=== PATIENT | male | born 1960 ===

== ENCOUNTER 2018-01-04 19:49 | Inpatient (IN) | payer BC ==
[2018-01-04 21:13] LABS: VENOUS BLOOD GAS BASE EXCESS 2.2 mmol/L (0.0-2.0); VENOUS BLOOD GAS PCO2 34 mmHg (40-60); VENOUS BLOOD GAS PO2 39 mm/Hg (30-55); VENOUS BLOOD PH 7.48 (7.32-7.43)
[2018-01-04 21:20] LABS: BASO # 0.2 K/uL (0.0-0.2); BASO % 0.8 % (0.0-2.0); HEMOGLOBIN 14.1 g/dL (12.0-18.0); LYMPH % 15.4 % (20.0-40.0); MEAN CELL VOLUME 87.6 fl (80.0-94.0); MEAN CORPUSCULAR HEMOGLOBIN 29.3 pg (27.0-31.0); MEAN CORPUSCULAR HGB CONC 33.4 g/dL (33.0-37.0); MONO # 3.6 K/uL (0.0-0.8); MONO % 13.7 % (0.0-10.0); NEUT # 18.3 K/uL (1.8-7.0); NEUT % 70.1 % (50.0-75.0); RBC 4.8 Mil/uL (4.40-5.90); RED CELL DISTRIBUTION WIDTH 13.3 % (11.5-14.5); WHITE BLOOD COUNT 26.2 K/uL (4.8-10.8)
[2018-01-04 21:25] LABS: ALB/GLOB RATIO 1.2 (1.0-2.1); ALBUMIN 4.3 g/dL (3.5-5.0); ALT/SGPT 31 U/L (21-72); AST/SGOT 25 U/L (17-59); BLOOD UREA NITROGEN 12 mg/dl (9-20); CALCIUM 9.5 mg/dL (8.4-10.2); GFR AFRICAN-AMERICAN > 60; GFR NON-AFRICAN AMERICAN > 60
--- NOTE | 2018-01-04 21:40 | CT ---
EXAM: CT Abdomen and Pelvis Without Intravenous Contrast EXAM DATE/TIME: 01/04/2018 8:15 PM CLINICAL HISTORY: 57 years old, male; Pain; Abdominal pain; Flank; Right; Additional info: Fever flank pain R/O renal colic or pyelo TECHNIQUE: Axial computed tomography images of the abdomen and pelvis without intravenous contrast. All CT scans at this facility use one or more dose reduction techniques, viz.: automated exposure control; ma/kV adjustment per patient size (including targeted exams where dose is matched to indication; i.e. head); or iterative reconstruction technique. Coronal and sagittal reformatted images were created and reviewed. COMPARISON: There are no prior studies for comparison. FINDINGS: Lower thorax: Heart size is at the upper limits of normal. There is a small hiatal hernia. There is minimal scarring at the lung bases.There are degenerative changes in the osseus structures. ABDOMEN: Liver: There is fatty infiltration of the liver. Gallbladder and bile ducts: unremarkable Pancreas: unremarkable Spleen: unremarkable Adrenals: unremarkable Kidneys and ureters: There is a tiny nonobstructing right renal stone.Kidneys and ureters are otherwise unremarkable. Stomach and bowel: Stomach is almost empty. Rotation is normal. There is no small bowel obstruction. Ileocecal region is unremarkable. Appendix and terminal ileum are unremarkable.There is moderate stool in the colon. There is scattered diverticulosis. Appendix: See stomach and bowel PELVIS: Bladder: Bladder is almost completely empty. There is mild bladder wall thickening. There is trace air in the bladder. Reproductive: Prostate is enlarged.Seminal vesicles have the expected configuration. ABDOMEN and PELVIS: Intraperitoneal space: There is no free air or free fluid. Bones/joints: See above. Soft tissues: There is a small fat containing umbilical hernia. There is a fat containing left renal hernia. Vasculature: There are multiple phleboliths. Vascular structures are unremarkable. Lymph nodes: There is no pathologic adenopathy. IMPRESSION: No obstructing renal or ureteral stones or hydronephrosis; limited evaluation of renal parenchyma due to the lack of intravenous contrast material; enlarged prostate; bladder wall thickening; small amount of air in the bladder, infection versus iatrogenic; fatty liver; no CT findings of appendicitis or diverticulitis
--- NOTE | 2018-01-04 22:24 | ED PDOC ---
HPI: General Adult Time Seen by Provider: 01/04/18 20:01 Chief Complaint (Nursing): Fever Chief Complaint (Provider): Fever History Per: Patient History/Exam Limitations: no limitations Onset/Duration Of Symptoms: Days (1) Have you had recent travel within the past 21 days to any of the following countries: [place], [place], [place] or [place]?: No Additional History Per: Patient Additional Complaint(s): 57yo male, history of asthma, high cholesterol, hypertension, presents to ED with complaints of fever and dysuria. Patient reports he had a fever yesterday with Tmax of 104, however he has not taken any medication for his symptoms. He also reports difficulty with urination and dysuria, he denies any nausea or vomiting. He also had constipation for the past two days preceded by episodes of diarrhea. Patient states 3 days ago, he had a cystoscopy for evaluation of microscopic hematuria at [place], [place] and performed by Dr. Dangelo. Patient states he called Dr. Dangelo to inform about his symptoms and was prescribed cippro. He denies any other medical complaints. Past Medical History Reviewed: Historical Data, Nursing Documentation, Vital Signs Vital Signs: Last Vital Signs Temp 99.8 F H 01/07/18 07:34 Pulse 91 H 01/07/18 07:34 Resp 20 01/07/18 07:34 BP 168/91 H 01/07/18 07:34 Pulse Ox 97 01/07/18 07:34 - Medical History PMH: HTN, Hypercholesterolemia - Surgical History Surgical History: No Surg Hx - Family History Family History: States: Hypertension, Other Other Family History: high cholesterol - Social History Ex-Smoker (has not smoked in the last 12 months): Yes Alcohol: None Drugs: Denies - Home Medications Home Medications: Ambulatory Orders Medication Instructions Recorded Albuterol Sulfate [Proair Hfa] 0.09 mg IH DAILY 01/05/18 Atorvastatin [Lipitor] 20 mg PO DAILY #30 tab 01/07/18 Cefdinir [Omnicef] 300 mg PO Q12 #10 cap 01/07/18 Fluticasone/Vilanterol [Breo 1 each IH DAILY #1 blst.w.dev 01/07/18 Ellipta 200-25 Mcg INH] Lisinopril [Zestril] 20 mg PO DAILY #30 tablet 01/07/18 Tamsulosin [Flomax] 0.4 mg PO DAILY #30 cap 01/07/18 - Allergies Allergies/Adverse Reactions: Allergies Allergy/AdvReac Type Severity Reaction Status Date / Time Penicillins Allergy ANAPHYLAXIS Verified 01/04/18 19:51 Review of Systems ROS Statement: Except As Marked, All Systems Reviewed And Found Negative Constitutional: Positive for: Fever ENT: Positive for: Nose Congestion Genitourinary Male: Positive for: Dysuria Physical Exam - Reviewed Nursing Documentation Reviewed: Yes Vital Signs Reviewed: Yes - Physical Exam Appears: Positive for: Non-toxic, No Acute Distress Head Exam: Positive for: ATRAUMATIC, NORMOCEPHALIC Skin: Positive for: Warm, Dry Eye Exam: Positive for: EOMI, PERRL ENT: Negative for: Pharyngeal Erythema, Tonsillar Exudate Neck: Positive for: Painless ROM, Supple Cardiovascular/Chest: Positive for: Regular Rate, Rhythm. Negative for: Murmur Respiratory: Positive for: Normal Breath Sounds. Negative for: Wheezing Gastrointestinal/Abdominal: Positive for: Soft (soft, protuberant obese abdomen) , Tenderness (mild suprapubic tenderness). Negative for: Distended, Guarding, Rebound Back: Negative for: L CVA Tenderness, R CVA Tenderness Extremity: Positive for: Normal ROM. Negative for: Deformity Lymphatic: Negative for: Adenopathy Neurologic/Psych: Positive for: Alert. Negative for: Motor/Sensory Deficits - Laboratory Results Result Diagrams: 01/07/18 05:10 01/07/18 05:10 - ECG O2 Sat by Pulse Oximetry: 96 (RA) Pulse Ox Interpretation: Normal Medical Decision Making Medical Decision Making: Impression: Dysuria, fever Differential: Sepsis, UTI, cystitis, pyelonephritis, urinary retention, renal colic Plan: -- Labs -- CT Abdomen and Pelvis -- Nasal decongestant 15 ml -- Rocephin 1gm IV -- Toradol 15mg IV -- Tylenol 975 mg PO Time: 2140 CT Abdomen and Pelvis FINDINGS: Lower thorax: Heart size is at the upper limits of normal. There is a small hiatal hernia. There is minimal scarring at the lung bases.There are degenerative changes in the osseus structures. ABDOMEN: Liver: There is fatty infiltration of the liver. Gallbladder and bile ducts: unremarkable Pancreas: unremarkable Spleen: unremarkable Adrenals: unremarkable Kidneys and ureters: There is a tiny nonobstructing right renal stone.Kidneys and ureters are otherwise unremarkable. Stomach and bowel: Stomach is almost empty. Rotation is normal. There is no small bowel obstruction. Ileocecal region is unremarkable. Appendix and terminal ileum are unremarkable.There is moderate stool in the colon. There is scattered diverticulosis. Appendix: See stomach and bowel PELVIS: Bladder: Bladder is almost completely empty. There is mild bladder wall thickening. There is trace air in the bladder. Reproductive: Prostate is enlarged.Seminal vesicles have the expected configuration. ABDOMEN and PELVIS: Intraperitoneal space: There is no free air or free fluid. Bones/joints: See above. Soft tissues: There is a small fat containing umbilical hernia. There is a fat containing left renal hernia. Vasculature: There are multiple phleboliths. Vascular structures are unremarkable. Lymph nodes: There is no pathologic adenopathy. IMPRESSION: No obstructing renal or ureteral stones or hydronephrosis; limited evaluation of renal parenchyma due to the lack of intravenous contrast material; enlarged prostate; bladder wall thickening; small amount of air in the bladder, infection versus iatrogenic; fatty liver; no CT findings of appendicitis or diverticulitis Marked leukocytosis and persistent leuks in UA. Will hospitalize for UTI and sepsis DW Dr Stringer Hospitalist covering for PMD Dr Valencia ([facility]) Scribe Attestation: Documented by Maryana Fontaine, acting as a scribe for Kaleigh Wayne MD Provider Scribe Attestation: All medical record entries made by the Scribe were at my direction and personally dictated by me. I have reviewed the chart and agree that the record accurately reflects my personal performance of the history, physical exam, medical decision making, and the department course for this patient. I have also personally directed, reviewed, and agree with the discharge instructions and disposition. Disposition - Clinical Impression Clinical Impression: UTI (urinary tract infection), Sepsis Counseled Patient/Family Regarding: Studies Performed, Diagnosis - Disposition Disposition Time: 22:00 Condition: FAIR - Pt Status Changed To: Hospital Disposition Of: Observation - POA Present On Arrival: None
[2018-01-04 22:46] LABS: URINE BILIRUBIN NEGATIVE (NEGATIVE); URINE BLOOD SMALL (NEGATIVE); URINE CLARITY SLIGHTY-CLOUDY (Clear); URINE COLOR YELLOW (YELLOW); URINE GLUCOSE (UA) NEG (Normal); URINE LEUKOCYTE ESTERASE TRACE Leu/uL (Negative); URINE PROTEIN 100 mg/dL (NEGATIVE); URINE UROBILINOGEN 0.2-1.0 mg/dL (0.2-1.0)
[2018-01-04] MEDS ORDERED: cefTRIAXone (Rocephin) 1 gm Inj ONE (22:49)
--- NOTE | 2018-01-04 23:59 | CP.PCM.HP ---
History of Present Illness - History of Present Illness History of Present Illness: CC: Fever, dysuria This is a 57 year old male with a past medical history of morbid obesity, hypercholesterolemia, asthma, essential hypertension, who presented to the ED today with the complaint of fever of 104 at home, malaise, and dysuria. The patient states that 3 days ago he had a cystoscopy due to c/o hematuria for which he states that nothing was found. This was done by urologist Dr. Dangelo in [place], [place]. He has taken Cipro for the past 2 days due to the fever and dysuria which was given to him by the urologist. In the ED, the patient was found to have significant leukocytosis and a fever of 101.6 with tachycardia. Urinalysis shows WBC in the urine, however is not conclusive at this time for urinary tract infection due to lack of significant bacteria or urine nitrates or leukocyte esterase. The patient is also complaining of intermittent diarrhea. CT scan was performed and shows fatty liver but no evidence of obstructive uropathy. The patient is to be admitted for further workup and management of sepsis. Patient also c/o nasal congestion and pressure. Patient denies chest pain, shortness of breath, chills, nausea, vomiting, headache. All of the patient's questions were answered at the bedside. Present on Admission - Present on Admission Any Indicators Present on Admission: No History of DVT/PE: No History of Uncontrolled Diabetes: No Review of Systems - Review of Systems Review of Systems: A 12 point ROS was conducted and found to be negative other than what was mentioned in the HPI. Past Patient History - Infectious Disease Hx of Infectious Diseases: None - Past Medical History & Family History Past Medical History?: Yes Past Family History: Reviewed and not pertinent - Past Social History Smoking Status: Never Smoked Alcohol: None Drugs: Denies - CARDIAC Hx Hypercholesterolemia: Yes Hx Hypertension: Yes Meds Allergies/Adverse Reactions: Allergies Allergy/AdvReac Type Severity Reaction Status Date / Time Penicillins Allergy ANAPHYLAXIS Verified 01/04/18 19:51 Physical Exam - Additional Findings Additional findings: Physical exam: Constitutional- cooperative, awake, alert Head- NCAT, PERRL Eye- PERRL, EOMI ENT- normal exam, MMM. Neck- normal inspection, supple, no JVD Respiratory- CTAB, no wheezes rales rhonchi Cardiovascular- RRR, +S1, +S2 no MRG GI/Abdominal- protuberant, normal bowel sounds, soft, no mass, no hsm Skin- warm, dry, multiple tattoos Extremities Exam- normal capillary refill, normal inspection Neurological Exam- alert, awake, oriented Psych- normal mood, normal affect Results - Vital Signs Recent Vital Signs: Last Vital Signs Temp 101.6 F H 01/04/18 22:38 Pulse 103 H 01/04/18 22:38 Resp 16 01/04/18 19:51 BP 168/81 H 01/04/18 19:51 Pulse Ox 96 01/04/18 22:51 - Labs Result Diagrams: 01/04/18 21:02 01/04/18 21:02 Labs: Laboratory Results - last 24 hr 01/04/18 01/04/18 01/04/18 21:02 21:02 21:10 WBC 26.2 H RBC 4.80 Hgb 14.1 Hct 42.1 MCV 87.6 MCH 29.3 MCHC 33.4 RDW 13.3 Plt Count 216 MPV 9.0 Neut % (Auto) 70.1 Lymph % (Auto) 15.4 L [place] % (Auto) 13.7 H Eos % (Auto) 0.0 Baso % (Auto) 0.8 Neut # (Auto) 18.3 H Lymph # (Auto) 4.0 [place] # (Auto) 3.6 H Eos # (Auto) 0.0 Baso # (Auto) 0.2 pO2 39 VBG pH 7.48 H VBG pCO2 34 L VBG HCO3 26.1 VBG Total CO2 26.3 VBG O2 Sat (Calc) 83.3 H VBG Base Excess 2.2 H VBG Potassium 3.7 Glucose 135 H Lactate 1.0 FiO2 21.0 Sodium 139 134.0 Potassium 3.5 L Chloride 101 103.0 Carbon Dioxide 24 Anion Gap 18 BUN 12 Creatinine 1.0 Est GFR ( Amer) > 60 Est GFR (Non-Af Amer) > 60 Random Glucose 137 H Calcium 9.5 Total Bilirubin 1.2 AST 25 ALT 31 Alkaline Phosphatase 68 Total Protein 7.9 Albumin 4.3 Globulin 3.6 Albumin/Globulin Ratio 1.2 Venous Blood Potassium 3.7 Urine Color Urine Clarity Urine pH Ur Specific [place] Urine Protein Urine Glucose (UA) Urine Ketones Urine Blood Urine Nitrate Urine Bilirubin Urine Urobilinogen Ur Leukocyte Esterase Urine RBC (Auto) Urine Microscopic WBC 01/04/18 22:05 WBC RBC Hgb Hct MCV MCH MCHC RDW Plt Count MPV Neut % (Auto) Lymph % (Auto) [place] % (Auto) Eos % (Auto) Baso % (Auto) Neut # (Auto) Lymph # (Auto) [place] # (Auto) Eos # (Auto) Baso # (Auto) pO2 VBG pH VBG pCO2 VBG HCO3 VBG Total CO2 VBG O2 Sat (Calc) VBG Base Excess VBG Potassium Glucose Lactate FiO2 Sodium Potassium Chloride Carbon Dioxide Anion Gap BUN Creatinine Est GFR ( Amer) Est GFR (Non-Af Amer) Random Glucose Calcium Total Bilirubin AST ALT Alkaline Phosphatase Total Protein Albumin Globulin Albumin/Globulin Ratio Venous Blood Potassium Urine Color Yellow Urine Clarity Slighty-cloudy Urine pH 6.0 Ur Specific [place] 1.017 Urine Protein 100 Urine Glucose (UA) Neg Urine Ketones Negative Urine Blood Small Urine Nitrate Negative Urine Bilirubin Negative Urine Urobilinogen 0.2-1.0 Ur Leukocyte Esterase Trace Urine RBC (Auto) 23 H Urine Microscopic WBC 13 H Assessment & Plan - Assessment and Plan (Free Text) Plan: ASSESSMENT/PLAN This is a 57 year old male with a past medical history of morbid obesity, hypercholesterolemia, asthma, essential hypertension, who is being admitted for sepsis, presumably secondary to urinary tract infection. Sepsis, presumably secondary to UTI - Med/surg obs - IV bolus NS given in ED, continue NS at 150 cc/hour - Continue Rocephin 1 gram IVPB daily - Toradol PRN for pain - Monitor vitals closely - Tylenol PRN for fever - Follow up urine cultures - F/u CBC Leukocytosis, WBC 26.2 - Secondary to sepsis/infection r/o influenza - F/u flu swab - Will treat empiracally for influenza with Tamiflu, given significant fevers Sinusitis - Afrin PRN Essential hypertension 168/81 - Monitor for now with sepsis present - likely restart home htn meds in am Hypercholesterolemia - statin Morbid obesity BMI 42.3 - Obtain HGA1C DVT prophylaxis - Lovenox
[2018-01-05] MEDS: Sodium Chloride 0.9% 1,000 ML IV SCH ×3 (02:18→20:00)
[2018-01-05 07:07] LABS: HEMOGLOBIN 13.1 g/dL (12.0-18.0); MEAN CELL VOLUME 89.1 fl (80.0-94.0); MEAN CORPUSCULAR HEMOGLOBIN 29.8 pg (27.0-31.0); MEAN CORPUSCULAR HGB CONC 33.5 g/dL (33.0-37.0); RBC 4.39 Mil/uL (4.40-5.90); RED CELL DISTRIBUTION WIDTH 13.6 % (11.5-14.5); WHITE BLOOD COUNT 22.7 K/uL (4.8-10.8)
[2018-01-05 07:21] LABS: BLOOD UREA NITROGEN 13 mg/dl (9-20); CALCIUM 8.6 mg/dL (8.4-10.2); GFR AFRICAN-AMERICAN > 60; GFR NON-AFRICAN AMERICAN > 60
--- NOTE | 2018-01-05 08:21 | RAD ---
HISTORY: sepsis COMPARISON: 02/09/2017 TECHNIQUE: Chest PA and lateral FINDINGS: LUNGS: No active pulmonary disease. PLEURA: No significant pleural effusion identified. No pneumothorax apparent. CARDIOVASCULAR: Normal. OSSEOUS STRUCTURES: Prominent thoracic marginal osteophytosis. Right shoulder arthrosis VISUALIZED UPPER ABDOMEN: Normal. OTHER FINDINGS: None. IMPRESSION: No interval pathology noted
[2018-01-05] MEDS: Influenza Vaccine 18yr & older 0.5 ML/45 MCG SYR IM ONE ×2 (08:43→09:05)
[2018-01-05] MEDS ORDERED: Potassium Chloride 20 mEq ER Tab PO ONE (08:57)
[2018-01-05] MEDS ORDERED: Enoxaparin 40 mg Syringe SC SCH (09:00)
[2018-01-05] MEDS ORDERED: Enoxaparin 60 mg Syringe SC SCH (09:00)
[2018-01-05] MEDS ORDERED: Pneumococcal 23-Valent Vaccine IM ONE (09:00)
--- NOTE | 2018-01-05 11:21 | CP.PCM.PN ---
Subjective - Date & Time of Evaluation Date of Evaluation: 01/05/18 Time of Evaluation: 11:15 - Subjective Subjective: still with fever dysuria, frequency +nasal congestion - hx of Rhinitis, uses nasal spray at home denies CP has cough , chronic x 1 year no abd pain Objective - Vital Signs/Intake and Output Vital Signs (last 24 hours): Temp Pulse Resp BP Pulse Ox 99.3 F 93 H 20 156/96 H 96 01/05/18 08:06 01/05/18 09:09 01/05/18 08:06 01/05/18 09:09 01/05/18 08:06 - Medications Medications: Current Medications Acetaminophen (Tylenol 325mg Tab) 650 mg PO Q6 PRN PRN Reason: Fever >100.4 F Atorvastatin Calcium (Lipitor) 40 mg PO DAILY [facility] Last Admin: 01/05/18 08:41 Dose: 40 mg Enoxaparin Sodium (Lovenox) 50 mg SC DAILY [facility] PRN Reason: Protocol Last Admin: 01/05/18 08:37 Dose: 50 mg Home Med (Albuterol Sulfate) 0.09 mg IH DAILY [facility] Sodium Chloride (Sodium Chloride 0.9%) 1,000 mls @ 150 mls/hr IV .Q6H40M [facility] Last Admin: 01/05/18 06:19 Dose: Not Given Ceftriaxone Sodium 1 gm/ (Dextrose) 100 mls @ 100 mls/hr IVPB DAILY [facility] PRN Reason: Protocol Last Admin: 01/05/18 08:45 Dose: 100 mls/hr Ketorolac Tromethamine (Toradol) 30 mg IVP Q6 PRN PRN Reason: Pain, severe (8-10) Last Admin: 01/05/18 08:46 Dose: 30 mg Lisinopril (Zestril) 20 mg PO DAILY [facility] Last Admin: 01/05/18 09:09 Dose: 20 mg Ondansetron HCl (Zofran Inj) 4 mg IVP Q6 PRN PRN Reason: Nausea/Vomiting Oseltamivir Phosphate (Tamiflu Cap) 75 mg PO BID [facility] PRN Reason: Protocol Last Admin: 01/05/18 08:41 Dose: 75 mg Oxymetazoline HCl (Nasal Decongestant 15 Ml) 1 spr NS Q12 PRN PRN Reason: Nasal congestion Fluticasone/Salmeterol (Advair Diskus 250/50) 1 puff IH Q12H [facility] - Labs Labs: 01/05/18 05:20 01/05/18 05:20 - Constitutional Appears: Non-toxic, No Acute Distress - Head Exam Head Exam: ATRAUMATIC, NORMAL INSPECTION, NORMOCEPHALIC - Eye Exam Eye Exam: EOMI, Normal appearance, PERRL Pupil Exam: NORMAL ACCOMODATION - ENT Exam ENT Exam: Mucous Membranes Moist, Normal External Ear Exam Additional comments: nasal congestion - Neck Exam Neck Exam: Full ROM. absent: Meningismus - Respiratory Exam Respiratory Exam: NORMAL BREATHING PATTERN. absent: Rales, Wheezes, Respiratory Distress - Cardiovascular Exam Cardiovascular Exam: REGULAR RHYTHM, +S1, +S2 - GI/Abdominal Exam GI & Abdominal Exam: Soft, Normal Bowel Sounds. absent: Tenderness - Extremities Exam Extremities Exam: Full ROM, Normal Capillary Refill. absent: Calf Tenderness, Pedal Edema - Back Exam Back Exam: Full ROM. absent: CVA tenderness (L), CVA tenderness (R), paraspinal tenderness, vertebral tenderness - Neurological Exam Neurological Exam: Alert, Awake, CN II-XII Intact, Normal Gait, Oriented x3 Neuro motor strength exam: Left Upper Extremity: 5, Right Upper Extremity: 5, Left Lower Extremity: 5, Right Lower Extremity: 5 - Psychiatric Exam Psychiatric exam: Normal Affect, Normal Mood - Skin Skin Exam: Dry, Normal Color, Warm Assessment and Plan - Assessment and Plan (Free Text) Assessment: This is a 57 year old male with a past medical history of morbid obesity, hypercholesterolemia, asthma, essential hypertension, chronic rhinosinusitis, who came in bec of fever , dysuria, frequency. recent hx of Cystoscopy. Sepsis, presumably secondary to UTI -Pt with persistent fever and leukocytosis, will admit pt - continue IV hydration - Continue Rocephin 1 gram IVPB daily - Toradol PRN for pain - Monitor vitals closely - Tylenol PRN for fever - Follow up urine cultures and blood c/s Suspected Influenza, unlikely - fever likely due to UTI and not flu and nasal congestion is chronic, no ther sxs like bodyaches - Flu swab negative - d/c Tamiflu Chronic RhinoSinusitis -pt on Afrin at home - will d/c as persistnt nasal congestion might be rebound - start Flonase Chronic Cough ? sec to EMILY - d/c Lisinopril, start Diovan - CXR : negative Essential hypertension -start Eriberto, d/c Lisinopril ( may be etio of chronic cough) Hypercholesterolemia - statin Morbid obesity BMI 42.3 Asthma, mild intermittent - pt states he had seen Pulm and was prescribed Lakshmi and Albuterol DVT prophylaxis - Lovenox
[2018-01-05] MEDS ORDERED: Albuterol HFA 90 mcg/actuation (8 g) INH STA (12:37)
[2018-01-05] MEDS: ALBUTEROL SULFATE 0.09 MG IH SCH (12:50)
[2018-01-05] MEDS ORDERED: Albuterol-Ipratrop 3 mg / 0.5 (3 ml) UD INH SCH (14:00)
[2018-01-05] MEDS: Albuterol-Ipratrop 3 mg / 0.5 (3 ml) UD INH PRN (19:37)
[2018-01-06 06:48] LABS: BLOOD UREA NITROGEN 10 mg/dl (9-20); CALCIUM 8.5 mg/dL (8.4-10.2); GFR AFRICAN-AMERICAN > 60; GFR NON-AFRICAN AMERICAN > 60
[2018-01-06 06:50] LABS: BASO # 0.1 K/uL (0.0-0.2); BASO % 0.4 % (0.0-2.0); EOS # 0.1 K/uL (0.0-0.7); EOS % 0.4 % (0.0-4.0); HEMOGLOBIN 12.6 g/dL (12.0-18.0); LYMPH # 2.6 K/uL (1.0-4.3); MEAN CELL VOLUME 87.9 fl (80.0-94.0); MEAN CORPUSCULAR HEMOGLOBIN 30.1 pg (27.0-31.0); MEAN CORPUSCULAR HGB CONC 34.2 g/dL (33.0-37.0); MEAN PLATELET VOLUME 9.5 fl (7.2-11.7); MONO # 1.9 K/uL (0.0-0.8); MONO % 10.9 % (0.0-10.0); NEUT # 12.6 K/uL (1.8-7.0); NEUT % 73.3 % (50.0-75.0); NRBC % 0.1 % (0.0-0.0); RBC 4.18 Mil/uL (4.40-5.90); RED CELL DISTRIBUTION WIDTH 13.4 % (11.5-14.5); WHITE BLOOD COUNT 17.2 K/uL (4.8-10.8)
--- NOTE | 2018-01-06 08:31 | CP.PCM.PN ---
Subjective - Date & Time of Evaluation Date of Evaluation: 01/06/18 Time of Evaluation: 08:31 - Subjective Subjective: COMFORTABLE DYSURIA FREQ HD STABLE NAD STABLE COUGH Objective - Vital Signs/Intake and Output Vital Signs (last 24 hours): Temp Pulse Resp BP Pulse Ox 98.4 F 89 20 167/98 H 97 01/06/18 07:50 01/06/18 07:50 01/06/18 07:50 01/06/18 07:50 01/06/18 07:50 GENERAL APPEARANCE: Well developed, well nourished, alert and cooperative, and appears to be in no acute distress. HEENT: normocephalic, atraumatic PERRL, EOMI. Vision is grossly intact. External auditory canals clear, hearing grossly intact. No nasal discharge. Oral cavity and pharynx normal. No inflammation, swelling, exudate, or lesions. NECK: Neck supple, non-tender without lymphadenopathy, masses or thyromegaly. CARDIAC: Normal S1 and S2. No S3, S4 or murmurs. Rhythm is regular. LUNGS: Clear to auscultation and percussion without rales, rhonchi, wheezing or diminished breath sounds. ABDOMEN: Positive bowel sounds. Soft, nondistended, nontender. No guarding or rebound. No masses. BACK: Examination of the spine reveals no spinal deformity, symmetry of spinal muscles, EXTREMITIES: No significant deformity or joint abnormality. No edema. NEUROLOGICAL: Strength and sensation symmetric and intact throughout. Reflexes 2 + throughout. SKIN: Skin normal color, texture and turgor with no lesions or eruptions. PSYCHIATRIC: The patient was oriented to person, place, and time. Normal affect. - Medications Medications: Current Medications Acetaminophen (Tylenol 325mg Tab) 650 mg PO Q6 PRN PRN Reason: Fever >100.4 F Last Admin: 01/06/18 03:42 Dose: 650 mg Albuterol/Ipratropium (Duoneb 3 Mg/0.5 Mg (3 Ml) Ud) 3 ml INH RTID PRN PRN Reason: Shortness of Breath Last Admin: 01/05/18 19:37 Dose: 3 ml Atorvastatin Calcium (Lipitor) 40 mg PO DAILY [facility] Last Admin: 01/05/18 08:41 Dose: 40 mg Enoxaparin Sodium (Lovenox) 40 mg SC DAILY [facility] PRN Reason: Protocol Fluticasone Propionate (Flonase) 1 spr MICHAEL BID [facility] Last Admin: 01/05/18 17:17 Dose: Not Given Home Med (Albuterol Sulfate) 0.09 mg IH DAILY [facility] Last Admin: 01/05/18 12:50 Dose: 0.09 mg Home Med (Patient's Own Medication) 1 unit INH DAILY [facility] Sodium Chloride (Sodium Chloride 0.9%) 1,000 mls @ 150 mls/hr IV .Q6H40M [facility] Last Admin: 01/05/18 20:00 Dose: Not Given Ceftriaxone Sodium 1 gm/ (Dextrose) 100 mls @ 100 mls/hr IVPB DAILY [facility] PRN Reason: Protocol Last Admin: 01/05/18 08:45 Dose: 100 mls/hr Ketorolac Tromethamine (Toradol) 30 mg IVP Q6 PRN PRN Reason: Pain, severe (8-10) Last Admin: 01/05/18 17:21 Dose: 30 mg Ondansetron HCl (Zofran Inj) 4 mg IVP Q6 PRN PRN Reason: Nausea/Vomiting Oseltamivir Phosphate (Tamiflu Cap) 75 mg PO BID [facility] PRN Reason: Protocol Last Admin: 01/05/18 18:43 Dose: 75 mg Tamsulosin HCl (Flomax) 0.4 mg PO DAILY [facility] Last Admin: 01/05/18 12:37 Dose: 0.4 mg Tramadol HCl (Ultram) 100 mg PO Q6 PRN PRN Reason: Pain, moderate (4-7) Last Admin: 01/05/18 12:37 Dose: 100 mg Valsartan (Diovan) 160 mg PO DAILY [facility] - Labs Labs: 01/06/18 05:30 01/06/18 05:30 Assessment and Plan - Assessment and Plan (Free Text) Plan: This is a 57 year old male with a past medical history of morbid obesity, hypercholesterolemia, asthma, essential hypertension, chronic rhinosinusitis, who came in bec of fever , dysuria, frequency. recent hx of Cystoscopy. Sepsis, presumably secondary to UTI - persistent fever 100.5 OVERNIGHT TMAX 101 24H and leukocytosis - continue IV hydration - Continue Rocephin 1 gram IVPB daily - Toradol PRN for pain - Monitor vitals closely - Tylenol PRN for fever - Follow up urine cultures and blood c/s - NO GROWTH Suspected Influenza, unlikely - fever likely due to UTI and not flu and nasal congestion is chronic, no ther sxs like bodyaches - Flu swab negative - d/c Tamiflu Chronic RhinoSinusitis -pt on Afrin at home - will d/c as persistnt nasal congestion might be rebound - start Flonase Chronic Cough ? sec to EMILY - d/c Lisinopril, start Diovan - CXR : negative Essential hypertension -start Diovan, d/c Lisinopril ( may be etio of chronic cough) Hypercholesterolemia - statin Morbid obesity BMI 42.3 Asthma, mild intermittent - pt states he had seen Pulm and was prescribed Lakshmi and Albuterol DVT prophylaxis - Lovenox
[2018-01-06] MEDS: ALBUTEROL SULFATE 0.09 MG IH SCH (08:41)
[2018-01-06] MEDS: Enoxaparin 40 mg Syringe SC SCH (08:42)
[2018-01-06] MEDS: Sodium Chloride 0.9% 1,000 ML IV SCH ×3 (08:43→21:21)
[2018-01-06] MEDS ORDERED: Fluticasone-Salmeterol 250-50mcg Diskus IH SCH (09:00)
[2018-01-06] MEDS: Albuterol-Ipratrop 3 mg / 0.5 (3 ml) UD INH PRN ×2 (11:43→23:53)
[2018-01-06] MEDS: FLUTICASONE FUROATE INH SCH (12:35)
[2018-01-06] MEDS: VILANTEROL INH SCH (12:35)
[2018-01-07] MEDS: Sodium Chloride 0.9% 1,000 ML IV SCH ×3 (00:10→08:16)
[2018-01-07 07:18] LABS: BASO # 0.1 K/uL (0.0-0.2); BASO % 0.6 % (0.0-2.0); EOS # 0.1 K/uL (0.0-0.7); EOS % 1.1 % (0.0-4.0); HEMOGLOBIN 12.5 g/dL (12.0-18.0); LYMPH # 1.6 K/uL (1.0-4.3); LYMPH % 14.5 % (20.0-40.0); MEAN CELL VOLUME 88.3 fl (80.0-94.0); MEAN CORPUSCULAR HEMOGLOBIN 30.1 pg (27.0-31.0); MEAN CORPUSCULAR HGB CONC 34.1 g/dL (33.0-37.0); MEAN PLATELET VOLUME 9.3 fl (7.2-11.7); MONO # 1.3 K/uL (0.0-0.8); MONO % 11.5 % (0.0-10.0); NEUT # 7.9 K/uL (1.8-7.0); NEUT % 72.3 % (50.0-75.0); NRBC % 0.1 % (0.0-0.0); RBC 4.14 Mil/uL (4.40-5.90); RED CELL DISTRIBUTION WIDTH 13.1 % (11.5-14.5); WHITE BLOOD COUNT 10.9 K/uL (4.8-10.8)
--- NOTE | 2018-01-07 07:22 | CP.PCM.PN ---
Subjective - Date & Time of Evaluation Date of Evaluation: 01/07/18 Time of Evaluation: 07:22 Objective - Vital Signs/Intake and Output Vital Signs (last 24 hours): Temp Pulse Resp BP Pulse Ox 98.2 F 86 19 163/91 H 96 01/07/18 00:05 01/07/18 00:05 01/07/18 00:05 01/07/18 00:05 01/07/18 00:05 - Medications Medications: Current Medications Acetaminophen (Tylenol 325mg Tab) 650 mg PO Q6 PRN PRN Reason: Fever >100.4 F Last Admin: 01/06/18 17:32 Dose: 650 mg Albuterol/Ipratropium (Duoneb 3 Mg/0.5 Mg (3 Ml) Ud) 3 ml INH RTID PRN PRN Reason: Shortness of Breath Last Admin: 01/06/18 23:53 Dose: 3 ml Atorvastatin Calcium (Lipitor) [address] [facility] Last Admin: 01/06/18 08:42 Dose: 40 mg Enoxaparin Sodium (Lovenox) 40 mg SC DAILY [facility] PRN Reason: Protocol Last Admin: 01/06/18 08:42 Dose: 40 mg Fluticasone Propionate (Flonase) [address] [facility] Last Admin: 01/06/18 17:01 Dose: 1 spr Home Med (Albuterol Sulfate) 0.[address] [facility] Last Admin: 01/06/18 08:41 Dose: 0.09 mg Home Med (Patient's Own Medication) [address] [facility] Last Admin: 01/06/18 12:35 Dose: 1 unit Ceftriaxone Sodium 1 gm/ (Dextrose) 100 mls @ 100 mls/hr IVPB DAILY [facility] PRN Reason: Protocol Last Admin: 01/06/18 08:43 Dose: 100 mls/hr Sodium Chloride (Sodium Chloride 0.9%) 1,000 mls @ 100 mls/hr IV .Q10H [facility] Last Admin: 01/07/18 00:10 Dose: 100 mls/hr Ibuprofen (Motrin Tab) 600 mg PO Q8 PRN PRN Reason: Headache Ketorolac Tromethamine (Toradol) 30 mg IVP Q6 PRN PRN Reason: Pain, severe (8-10) Last Admin: 01/06/18 15:56 Dose: 30 mg Ondansetron HCl (Zofran Inj) 4 mg IVP Q6 PRN PRN Reason: Nausea/Vomiting Tamsulosin HCl (Flomax) 0.[address] [facility] Last Admin: 01/06/18 08:42 Dose: 0.4 mg Tramadol HCl (Ultram) 100 mg PO Q6 PRN PRN Reason: Pain, moderate (4-7) Last Admin: 01/06/18 13:28 Dose: 100 mg Valsartan (Diovan) [address] [facility] Last Admin: 01/06/18 08:42 Dose: 160 mg - Labs Labs: 01/06/18 05:30 01/06/18 05:30 Assessment and Plan - Assessment and Plan (Free Text) Plan: This is a 57 year old male with a past medical history of morbid obesity, hypercholesterolemia, asthma, essential hypertension, chronic rhinosinusitis, who came in bec of fever , dysuria, frequency. recent hx of Cystoscopy. Sepsis, presumably secondary to UTI - persistent fever 100.5 OVERNIGHT TMAX 101 24H and leukocytosis - continue IV hydration - Continue Rocephin 1 gram IVPB daily - Toradol PRN for pain - Monitor vitals closely - Tylenol PRN for fever - Follow up urine cultures and blood c/s - NO GROWTH Suspected Influenza, unlikely - fever likely due to UTI and not flu and nasal congestion is chronic, no ther sxs like bodyaches - Flu swab negative - d/c Tamiflu Chronic RhinoSinusitis -pt on Afrin at home - will d/c as persistnt nasal congestion might be rebound - start Flonase Chronic Cough ? sec to [facility] - d/c Lisinopril, start Diovan - CXR : negative Essential hypertension -start Diovan, d/c Lisinopril ( may be etio of chronic cough) Hypercholesterolemia - statin Morbid obesity BMI 42.3 Asthma, mild intermittent - pt states he had seen Pulm and was prescribed Lakshmi and Albuterol DVT prophylaxis - Lovenox
[2018-01-07 07:32] LABS: BLOOD UREA NITROGEN 10 mg/dl (9-20); CALCIUM 8.4 mg/dL (8.4-10.2); GFR AFRICAN-AMERICAN > 60; GFR NON-AFRICAN AMERICAN > 60
[2018-01-07 07:35] VITALS: BP 168/91; PULSE 91; RESP 20; TEMP 99.8
[2018-01-07] MEDS: Enoxaparin 40 mg Syringe SC SCH (08:08)
[2018-01-07] MEDS: FLUTICASONE FUROATE INH SCH (08:10)
[2018-01-07] MEDS: VILANTEROL INH SCH (08:10)
[2018-01-07] MEDS: ALBUTEROL SULFATE 0.09 MG IH SCH (08:11)
--- NOTE | 2018-01-07 10:29 | CP.PCM.DIS ---
Provider - Provider Date of Admission: 01/05/18 09:38 Attending physician: Faustino Stringer DO Time Spent in preparation of Discharge (in minutes): 30 Diagnosis - Discharge Diagnosis (1) Prostatitis Status: Acute Hospital Course - Lab Results Lab Results: Micro Results 01/04/18 21:17 Blood Blood Culture - Preliminary NO GROWTH AFTER 48 HOURS 01/04/18 21:02 Blood Blood Culture - Preliminary NO GROWTH AFTER 48 HOURS 01/04/18 21:17 Urine Urine Culture - Final No Growth (<1,000 CFU/ML) Most Recent Lab Values WBC 10.9 K/uL (4.8-10.8) H 01/07/18 05:10 RBC 4.14 Mil/uL (4.40-5.90) L 01/07/18 05:10 Hgb 12.5 g/dL (12.0-18.0) 01/07/18 05:10 Hct 36.6 % (35.0-51.0) 01/07/18 05:10 MCV 88.3 fl (80.0-94.0) 01/07/18 05:10 MCH 30.1 pg (27.0-31.0) 01/07/18 05:10 MCHC 34.1 g/dL (33.0-37.0) 01/07/18 05:10 RDW 13.1 % (11.5-14.5) 01/07/18 05:10 Plt Count 222 K/uL (130-400) 01/07/18 05:10 MPV 9.3 fl (7.2-11.7) 01/07/18 05:10 Neut % (Auto) 72.3 % (50.0-75.0) 01/07/18 05:10 Lymph % (Auto) 14.5 % (20.0-40.0) L 01/07/18 05:10 Dale % (Auto) 11.5 % (0.0-10.0) H 01/07/18 05:10 Eos % (Auto) 1.1 % (0.0-4.0) 01/07/18 05:10 Baso % (Auto) 0.6 % (0.0-2.0) 01/07/18 05:10 Neut # (Auto) 7.9 K/uL (1.8-7.0) H 01/07/18 05:10 Lymph # (Auto) 1.6 K/uL (1.0-4.3) 01/07/18 05:10 Dale # (Auto) 1.3 K/uL (0.0-0.8) H 01/07/18 05:10 Eos # (Auto) 0.1 K/uL (0.0-0.7) 01/07/18 05:10 Baso # (Auto) 0.1 K/uL (0.0-0.2) 01/07/18 05:10 pO2 39 mm/Hg (30-55) 01/04/18 21:10 VBG pH 7.48 (7.32-7.43) H 01/04/18 21:10 VBG pCO2 34 mmHg (40-60) L 01/04/18 21:10 VBG HCO3 26.1 mmol/L 01/04/18 21:10 VBG Total CO2 26.3 mmol/L (22-28) 01/04/18 21:10 VBG O2 Sat (Calc) 83.3 % (40-65) H 01/04/18 21:10 VBG Base Excess 2.2 mmol/L (0.0-2.0) H 01/04/18 21:10 VBG Potassium 3.7 mmol/L (3.6-5.2) 01/04/18 21:10 Sodium 134.0 mmol/L (132-148) 01/04/18 21:10 Chloride 103.0 mmol/L (98-107) 01/04/18 21:10 Glucose 135 mg/dL (75-110) H 01/04/18 21:10 Lactate 1.0 mmol/L (0.7-2.1) 01/04/18 21:10 FiO2 21.0 % 01/04/18 21:10 Sodium 138 mmol/l (132-148) 01/07/18 05:10 Potassium 3.4 MMOL/L (3.6-5.0) L 01/07/18 05:10 Chloride 101 mmol/L (98-107) 01/07/18 05:10 Carbon Dioxide 24 mmol/L (22-30) 01/07/18 05:10 Anion Gap 16 (10-20) 01/07/18 05:10 BUN 10 mg/dl (9-20) 01/07/18 05:10 Creatinine 0.8 mg/dl (0.8-1.5) 01/07/18 05:10 Est GFR ( Amer) > 60 01/07/18 05:10 Est GFR (Non-Af Amer) > 60 01/07/18 05:10 Random Glucose 166 mg/dL (75-110) H 01/07/18 05:10 Hemoglobin A1c 6.5 % (4.2-6.5) 01/05/18 05:20 Calcium 8.4 mg/dL (8.4-10.2) 01/07/18 05:10 Magnesium 1.9 MG/DL (1.6-2.3) 01/06/18 05:30 Total Bilirubin 1.2 mg/dl (0.2-1.3) 01/04/18 21:02 AST 25 U/L (17-59) 01/04/18 21:02 ALT 31 U/L (21-72) 01/04/18 21:02 Alkaline Phosphatase 68 U/L (38-126) 01/04/18 21:02 Total Protein 7.9 G/DL (6.3-8.2) 01/04/18 21:02 Albumin 4.3 g/dL (3.5-5.0) 01/04/18 21:02 Globulin 3.6 gm/dL (2.2-3.9) 01/04/18 21:02 Albumin/Globulin Ratio 1.2 (1.0-2.1) 01/04/18 21:02 Procalcitonin 0.25 NG/ML (0.19-0.49) 01/06/18 13:27 Venous Blood Potassium 3.7 mmol/L (3.6-5.2) 01/04/18 21:10 Urine Color Yellow (YELLOW) 01/04/18 22:05 Urine Clarity Slighty-cloudy (Clear) 01/04/18 22:05 Urine pH 6.0 (5.0-8.0) 01/04/18 22:05 Ur Specific Armour 1.017 (1.003-1.030) 01/04/18 22:05 Urine Protein 100 mg/dL (NEGATIVE) 01/04/18 22:05 Urine Glucose (UA) Neg mg/dL (Normal) 01/04/18 22:05 Urine Ketones Negative mg/dL (NEGATIVE) 01/04/18 22:05 Urine Blood Small (NEGATIVE) 01/04/18 22:05 Urine Nitrate Negative (NEGATIVE) 01/04/18 22:05 Urine Bilirubin Negative (NEGATIVE) 01/04/18 22:05 Urine Urobilinogen 0.2-1.0 mg/dL (0.2-1.0) 01/04/18 22:05 Ur Leukocyte Esterase Trace Юлия/uL (Negative) 01/04/18 22:05 Urine RBC (Auto) 23 /hpf (0-3) H 01/04/18 22:05 Urine Microscopic WBC 13 /hpf (0-5) H 01/04/18 22:05 Influenza Typ A,B (EIA) Negative for flu a/b (NEGATIVE) 01/04/18 22:44 - Hospital Course Hospital Course: This is a 57 year old male with a past medical history of morbid obesity, hypercholesterolemia, asthma, essential hypertension, chronic rhinosinusitis, who came in bec of fever , dysuria, frequency. recent hx of Cystoscopy. No dysuria, feels improved. Leukocytosis nearly resolved. Asymptomatic, no pain or discomfort on urination. May be dc home in stable condition with Cefdinir to complete course. To follow up with PCP. Sepsis, presumably secondary to UTI - afebrile, wbc resolved. - change Rocephin 1 gram IVPB daily to PO CEFDINIR - Toradol PRN for pain - Tylenol PRN for fever - Follow up urine cultures and blood c/s - NO GROWTH Suspected Influenza, unlikely - fever likely due to UTI and not flu and nasal congestion is chronic, no ther sxs like bodyaches - Flu swab negative - d/c Tamiflu Chronic RhinoSinusitis -pt on Afrin at home - will d/c as persistnt nasal congestion might be rebound - start Flonase Chronic Cough ? sec to [facility] - d/c Lisinopril, start Diovan - CXR : negative Essential hypertension -start Diovan, d/c Lisinopril ( may be etio of chronic cough) Hypercholesterolemia - statin Morbid obesity BMI 42.3 Asthma, mild intermittent - pt states he had seen Pulm and was prescribed Lakshmi and Albuterol DVT prophylaxis - Lovenox Discharge Exam - Head Exam Head Exam: ATRAUMATIC Additional comments: Vitals Reviewed GEN: WDWN, ALERT, COOPERATIVE HEENT: NCAT, PERRL, EOMI HEART: RRR, +S1S2, NO MRG LUNG: CTAB, NO WRR ABD: SOFT, NT, ND, NO HSM, NO MASSES EXT: NORMAL PEDAL PULSES, GOOD CAPILLARY REFILL NEURO: AAOX3, STRENGTH EQUAL BILATERAL UPPER AND LOWER EXTREMITIES SKIN: WARM, DRY PSYCH: NORMAL MOOD, NORMAL AFFECT Discharge Plan - Discharge Medications Prescriptions: Atorvastatin [Lipitor] 20 mg PO DAILY #30 tab Cefdinir [Omnicef] 300 mg PO Q12 #10 cap Fluticasone/Vilanterol [Breo Ellipta 200-25 Mcg INH] 1 each IH DAILY #1 blst.w.dev Lisinopril [Zestril] 20 mg PO DAILY #30 tablet Tamsulosin [Flomax] 0.4 mg PO DAILY #30 cap - Follow Up Plan Condition: GOOD Disposition: HOME/ ROUTINE Additional Instructions: patient to follow up with PCP in one week
[2018-01-07 18:49] VITALS: O2SAT 96
== END 2018-01-07 13:00 | disposition home or self-care (01) | DRG 872 ==
LOC: H.ER 19:49 → INTOOBSV 22:51 → H.ERHOLD 22:51 → OBSVTOIN 22:51 → H.MEDSURG1 01-05 01:28 → OBSVTOIN 01-05 09:38
PROVIDERS: ADMIT Internal Medicine; ATTEND Internal Medicine
PROC: 3E0234Z Introduction of Serum, Toxoid and Vaccine into Muscle, Percutaneous Approach (ICD-10-PCS; principal; 2018-01-05)
DX: A41.9 Sepsis, unspecified organism (principal); N39.0 Urinary tract infection, site not specified; E66.01 Morbid (severe) obesity due to excess calories; Z68.41 Body mass index [BMI] 40.0-44.9, adult; N41.0 Acute prostatitis; I10 Essential (primary) hypertension; J45.20 Mild intermittent asthma, uncomplicated; J32.8 Other chronic sinusitis; E78.00 Pure hypercholesterolemia, unspecified; K59.00 Constipation, unspecified; Z23 Encounter for immunization; Z87.891 Personal history of nicotine dependence